=== PATIENT | female | born 1945 | race Caucasian/White ===

== ENCOUNTER 2022-07-10 10:54 | Emergency (ER) | payer MEDICARE, OTHER, SELFPAY ==
[2022-07-10 10:55] VITALS: BP 151/112; PULSE 71; RESP 18; TEMP 36.1; O2SAT 100; BMI 22.8
[2022-07-10 11:40] VITALS: BP 152/63; PULSE 78; RESP 18; O2SAT 98
--- NOTE | 2022-07-10 11:49 | EDS_ITS ---
HPI History of Present Illness Chief Complaint: Ear Problem Informant: patient Narrative Narrative: Presents here concerning for earwax buildup right ear for past 2 days due to decreased hearing. History of similar multiple times in the past. She is currently visiting from a family , her specialist her back home. She sees ENT. She states she had earwax blockage and removal in the past. Edition yesterday stated had swelling to her right maxillary region twice that resolved currently. She has had dental extractions upper tooth, denies any pain in her teeth. Denies fevers. Denies sinus congestion. She states she has prescriptions for her specialist to use if needed including antibiotics. She states she called her physicians yesterday and updated them. Prior similar symptoms: Yes PFSH PFSH Medical History Hypertension Hypothyroid Allergy/AdvReac Type Severity Reaction Status Date / Time No Known Allergies Allergy Verified 07/10/22 10:57 Social History Smoking Status: Never smoker ROS ROS ED Constitutional Constitutional ED: Denies chills, fever(s) or sweats Eyes Eyes: Denies change in vision ENT ENT ED: Reports other Details: Hearing loss right, right facial swelling resolved ; Denies dysphagia or sore throat Cardiovascular Cardiovascular: Denies chest pain, leg edema, palpitations or racing heartbeat Respiratory/Chest Respiratory/Chest: Denies cough, dyspnea or dyspnea on exertion Gastrointestinal Gastrointestinal: Denies abdominal pain, diarrhea, nausea or vomiting Genitourinary Genitourinary ED: Denies dysuria, hematuria or urinary frequency Musculoskeletal Musculoskeletal: Denies back pain, extremity pain or neck pain Integumentary Denies rash or wounds Neurologic Neurologic: Denies headache(s), paresthesias or weakness EXAM Physical Exam Const Vital Signs: 07/10/22 10:55 07/10/22 11:40 Temperature 97 F L Temperature Source Temporal Pulse Rate 71 78 Respiratory Rate 18 18 Blood Pressure 151/112 H 152/63 H Blood Pressure Mean 125 Pulse Ox 100 98 Oxygen Delivery Method Room Air Positive well nourished and well developed General Appearance ED: well developed and NAD HEENT Reports TM's clear and moist mucous membranes HEENT Narrative: TMs are normal bilaterally. Right external canal there is very small amount of cerumen distal external. There is no narrowing. There is no fluctuance or abscesses. Left TM there was cerumen mid canal however no obstruction I was able to visualize the TM which was normal. There is no erythema or exudates. TMs are all intact. Oral exam, extracted tooth 3 and 5. Tooth 2 and 4 had dental fillings, however there is no tenderness to percussion there is no fluctuance. No current facial swelling. No sublingual edema. normocephalic and atraumatic Tympanic Membrane ED: Yes TM's clear Eyes PERRL, EOMs intact bilaterally and conjunctivae normal General Eye ED: Yes normal appearance of both eyes Neck no lymphadenopathy and supple General: Negative for tenderness Chest Wall Chest: Negative for tenderness Resp normal respiratory effort and normal air movement Effort and Inspection: symmetric chest movement; Negative for respiratory di stress Cardio regular rate, regular rhythm and no murmurs Peripheral Pulses: pulses 2+ throughout GI normal to inspection, nondistended, normoactive bowel sounds and non-tender Palpation: Negative for guarding or rebound tenderness present Back/Spine no CVA tenderness and no thoracic nor lumbar tenderness Extremity normal to inspection General Extremety ED: Negative for edema or tenderness General Extremity: Negative for edema Neuro oriented x3 and no sensory deficits noted Sensorium / Orientation: awake and alert Skin no rashes or lesions noted and no wounds MDM MDM MDM Narrative Medical decision making narrative: Patient exam had no obstructive findings of her canals. She has hearing loss of the right ear subjectively. She reports facial swelling x2 however none currently she denies any dental pain for concerns of infection. Denies any sinus problems. There is no signs of infection of the ear currently. Discussed [id number] with her symptoms. She states she has antibiotics to use. Discussed would not start unless swelling returns. She is here for another week. She states she used to live here and has seen ENT here in the past. She is given ENT for follow-up if she stays around otherwise she will need likely another hearing test as an outpatient. Her vitals are stable initial blood pressure 151/112 recheck of 152/63. She is reassured. Discussed with her no clear signs of infection currently. All her questions were answered. Discharge Plan Triage Chief Complaint: Ear Problem ED Provider: Max Figueroa Dx/Rx/DC Orders Clinical Impression: Hearing loss of right ear, Swelling of right side of face Instructions: Understanding Hearing Loss Primary Care Provider: NOT,DEFINED Referrals: Gautam Plascencia MD [Med Staff - Courtesy Staff] - 3-5 Days NOT,DEFINED [Primary Care Provider] - Activity Restrictions/Additional Instructions: Your ear exam is normal today. There was only tiny amount of cerumen left external canal with no swelling. There was cerumen in the left ear with no obstruction. There is no current facial swelling. You have upper right teeth with fillings in them however you state there is no pain therefore not likely infection from your teeth. No clear signs for why you had facial swelling twice yesterday. You would need to follow-up with ENT for decreased hearing. Monitoring symptoms, you report you have antibiotics to take from your doctors. Disposition Disposition: Home, Self Care
== END 2022-07-10 11:58 | disposition home or self-care (01) ==
LOC: ED 11:58
PROVIDERS: Emergency Provider Emergency Medicine; Visit Provider Emergency Medicine
DX: H91.91 Unspecified hearing loss, right ear (principal); R22.0 Localized swelling, mass and lump, head
CPT/HCPCS: 99282